=== PATIENT | male | born 1990 | race Caucasian/White ===

== ENCOUNTER → 2017-02-25 | Outpatient (CLI) | payer OTHER ==
--- NOTE | ~2017-02-25 | CR63 ---
[facility]. [facility] A Service of [facility] & [facility] RADIOLOGY TEXT RESULTS PATIENT: ANGÉLICA XIAO LOCATION: [facility] : 88 UNIT #: [id number] AGE: [address]: Rasheeda Mahmood MACHINE II CUTTER SEX: M ORDER DR: [id number] [address] [id number] O MR#: [id number] Acc #: [id number] NAME: ANGÉLICA XIAO : 1990 SEX: M STUDY DATE/TIME: 02/25/2017 16:01 UNIT: [facility] ROOM: STUDY DESCRIPTION: CR Chest 2 View Attending Physician: Rasheeda Mahmood A.P.R.N. Ordering Physician: Rasheeda Mahmood A.P.R.N. Primary Care Physician: Rasheeda Mahmood A.P.R.N. MEDICAL IMAGING REPORT This report is preliminary unless electronic signature is present. EXAM Chest PA and lateral, 02/25 COMPARISON None. HISTORY SUPPLIED Chest pain, respiratory infection beginning Saturday. FINDINGS PA and lateral views are obtained. The cardiovascular configuration is normal and the lungs are clear. CONCLUSION Normal chest. Dictated by... Ganesh Abreu M.D. THIS IS AN ELECTRONICALLY VERIFIED REPORT Ganesh Abreu M.D. at 02/26/2017 7:28 AM YUE/jaswinder TD: 02/25/2017 23:06 JOB #: [id number] MEDICAL IMAGING REPORT Page 1 of 1
== END | disposition home or self-care (01) ==
LOC: SRAD 15:52
DX: R07.9 Chest pain, unspecified (principal)
CPT/HCPCS: 71020